=== PATIENT | male | born 1940 | race Caucasian/White ===

== ENCOUNTER 2018-06-23 13:38 | Observation (INO) | payer OTHER ==
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
[2018-06-23 14:03] LABS: PLATELET COUNT 193 10^3/uL (150-400)
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
[2018-06-23] MEDS ORDERED: oxyCODONE IR 5 MG TAB PO PRN (17:19)
[2018-06-23] MEDS ORDERED: ONDANSETRON DISINTEGRATING 4 MG TAB PO PRN (17:19)
[2018-06-23] MEDS ORDERED: ONDANSETRON 4 MG/2 ML VIAL IVP PRN (17:19)
[2018-06-23] MEDS ORDERED: ACETAMINOPHEN 325 MG TAB PO PRN (17:19)
[2018-06-23] MEDS ORDERED: LISINOPRIL 10 MG TAB PO SCH (17:30)
[2018-06-23] MEDS: METOPROLOL TARTRATE 25 MG TAB PO SCH (20:06)
[2018-06-23] MEDS: ATORVASTATIN CALCIUM 20 MG TAB PO SCH (20:06)
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
[2018-06-23] MEDS ORDERED: LISINOPRIL/HCTZ 20/12.5MG 1 EA TAB PO SCH (21:00)
--- NOTE | 2018-06-23 21:02 | CPEKG ---
Test Reason : OPEN Blood Pressure : / mmHG Vent. Rate : 088 BPM Atrial Rate : 088 BPM P-R Int : 221 ms QRS Dur : 173 ms QT Int : 432 ms P-R-T Axes : 039 -87 058 degrees QTc Int : 523 ms Sinus rhythm Prolonged CT interval Probable left atrial enlargement RBBB and LAFB Confirmed by Kinsey Ramírez ([id number]) on 06/23/2018 9:02:06 PM Referred By: Confirmed By:Kinsey Ramírez
[2018-06-24] MEDS: ENOXAPARIN 40 MG/0.4 ML SYR SC SCH (08:17)
[2018-06-24] MEDS: METOPROLOL TARTRATE 25 MG TAB PO SCH ×2 (08:17→21:08)
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
--- NOTE | 2018-06-24 12:18 | ECHO ---
[email or web address] [address] Main: [phone] Fax: [email or web address] Echocardiogram Name: MADINA LOPEZ MR#: [id number] Study Date: 06/24/2018 Study Time: 09:21 AM Date of : 1940 Age: 78 year(s) Height: 177.8 cm (70 in.) Weight: 81.65 kg (180 lb.) BSA: 2 m2 Gender: Male Examination: Echo Indication: Unexplained Syncope Image Quality: Contrast: Requested by: Hunter Cunningham BP: 125 mmHg/78 mmHg Heart Rate: Rhythm: Normal sinus rhythm Indication: Unexplained Syncope Procedure Staff Hazardous Waste Remover: Brandt Cordero RDCS Reading Physician: Rodolfo Baird MD Requesting Provider: Conclusions: No pericardial effusion. Ejection fraction 70% without regional wall motion abnormalities. Left atrial dilatation with diastolic dysfunction by Doppler. Measurements: Chambers Valvular Assessment AV/MV Valvular Assessment TV/PV Normal Normal Normal Name Value Range Name Value Range Name Value Range Ao Olivia (MM): 2.9 cm (2.2 cm-3.7 AV Vmax: 2.13 m/s (1 m/s-1.7 PV Vmax: 0.95 m/s (0.6 m/s-0.9 cm) m/s) m/s) IVSd (2D): 1.4 cm (0.6 cm-1.1 AV maxP mmHg ( - ) PV PGmax: 4 mmHg ( - ) cm) LVOT Vmax: 0.99 m/s (0.7 m/s-1.1 LVDd (2D): 5.1 cm (4.2 cm-5.9 m/s) cm) MV E Vmax: 0.61 m/s ( - ) LVDs (2D): 2.7 cm (2.1 cm-4 MV A Vmax: 0.84 m/s ( - ) cm) MV E/A: 0.73 ( - ) LVPWd (2D): 1.4 cm (0.6 cm-1 cm) LVEF (2D): 78 (>=54 %) RVDd(2D): 4.2 cm (1.9 cm-3.8 cmmm) Continued Measurements: Chambers Name Value LADs: 3.9 cm LADs Lon.4 cm LA Area: 25.0 cm2 LA Volume: 92 ml LA Volume Index: 46.0 ml/m2 Patient: MADINA LOPEZ Study Date: 06/24/2018 Page 1 of 2 09:21 AM Findings: Left Ventricle: Normal size left ventricle. Moderate concentric LV hypertrophy. Normal global systolic LV function. EF is 78 %. No regional wall motion abnormality. Diastolic dysfunction is present. . No LVOT obstruction. Right Ventricle: Normal size right ventricle. Normal RV function. Left Atrium: The left atrium is moderately dilated. Right Atrium: The right atrium is normal in size. Mitral Valve: The mitral valve is normal in appearance. There is no significant mitral valve regurgitation. Aortic Valve: Mild aortic cusp calcification is noted. There is no significant aortic valve regurgitation. Tricuspid Valve: The tricuspid valve is normal in appearance and function. There is no tricuspid valve regurgitation. Pulmonic Valve: The pulmonic valve is normal in appearance and function. There is no pulmonic regurgitation seen. Aorta: The aorta is normal. Pericardium: No pericardial effusion. (No Signature Object) Patient: MADINA LOPEZ Study Date: 06/24/2018 Page 2 of 2 09:21 AM [id number]
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
[2018-06-24] MEDS ORDERED: LISINOPRIL/HCTZ 20/12.5MG 1 EA TAB PO SCH (21:00)
[2018-06-24] MEDS: ATORVASTATIN CALCIUM 20 MG TAB PO SCH (21:08)
[2018-06-25 08:17] VITALS: BP 134/85
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
--- NOTE | 2018-06-25 09:52 | ASMTLACE ---
LACE Length of stay for Answers: 1 day current admission Acuity / Level of Answers: No Care: Did the patient have an inpatient admission? Comorbidities - select Answers: Other Notes: HTN; HLD all that apply # of Emergency department Answers: 1-2 visits in the last 6 months Score: 3 Date Signed: 06/25/2018 09:51 AM Electronically Signed By:MARY Calles
[2018-06-25] MEDS: METOPROLOL TARTRATE 25 MG TAB PO SCH (10:19)
[2018-06-25] MEDS: ENOXAPARIN 40 MG/0.4 ML SYR SC SCH (11:37)
== END 2018-06-25 11:40 | disposition home or self-care (01) ==
LOC: EDUNIT# → F2W 16:56
PROVIDERS: ADMIT Surgery; ATTEND Internal Medicine
DX: R55 Syncope and collapse (principal); S52.511A Displaced fracture of right radial styloid process, initial encounter for closed fracture; S62.317A Displaced fracture of base of fifth metacarpal bone, left hand, initial encounter for closed fracture; S01.01XA Laceration without foreign body of scalp, initial encounter; V47.5XXA Car driver injured in collision with fixed or stationary object in traffic accident, initial encounter; Y92.414 Local residential or business street as the place of occurrence of the external cause; Y99.8 Other external cause status; I10 Essential (primary) hypertension; E78.5 Hyperlipidemia, unspecified
CPT/HCPCS: 12001; 29125; 70450; 71045; 71046; 73110; 93005; 93306; 96372; 99285; G0378; 84484-ER; G0390; J1650